=== PATIENT | female | born 1945 | race Two or more races ===

== ENCOUNTER 2018-09-19 07:21 | Day surgery (SDC) | payer MEDICARE ==
[2018-09-18 15:13] VITALS: BP 144/67
[2018-09-18 15:25] LABS: BASOPHILS % (AUTO) 1.7 % (0.0-5.0); EOSINOPHILS % (AUTO) 1.2 % (0.0-8.0); HEMATOCRIT 39.2 % (36-48); LYMPHOCYTES % (AUTO) 23.2 % (21.0-51.0); MEAN CORPUSCULAR HEMOGLOBIN 29.6 pg (27.0-33.0); MEAN CORPUSCULAR HGB CONC 33.7 g/dL (32.0-36.0); MEAN CORPUSCULAR VOLUME 87.8 fL (79-99); MONOCYTES % (AUTO) 7.9 % (3.0-13.0); PLATELET COUNT (AUTO) 324 K/uL (130-400); RED BLOOD CELL COUNT(AUTO) 4.47 MIL/uL (4.00-5.50); RED CELL DISTRIBUTION WIDTH 14.4 % (11.0-15.5)
[2018-09-18 15:25] LABS: BILIRUBIN,URINE NEGATIVE (NEGATIVE); COLOR,URINE YELLOW (YELLOW); GLUCOSE, URINE (UA) NEGATIVE (NEGATIVE); KETONES,URINE NEGATIVE (NEGATIVE); LEUKOCYTE ESTERASE ,URINE NEGATIVE (NEGATIVE); NITRATE,URINE NEGATIVE (NEGATIVE); OCCULT BLOOD,URINE NEGATIVE (NEGATIVE); PROTEIN,URINE NEGATIVE (NEGATIVE); UROBILINOGEN,URINE 0.2 mg/dL (0.2-1.0)
[2018-09-18 15:28] LABS: APPEARANCE,URINE CLEAR (CLEAR)
[2018-09-18 15:34] LABS: CREATININE 0.6 mg/dL (0.5-1.5); POTASSIUM 4.1 mmol/L (3.5-5.1)
[2018-09-19] VITALS (14 sets, daily range): BP systolic 120–165; BP diastolic 48–82
[~2018-09-19] VITALS: Ht 165.1 cm; Wt 101.2 kg
[~2018-09-19 07:21] MED LIST: FLUT16H NASAL; FLUT1DIS3 IH; LACTATED RINGERS 1000ML 1,000 ML IV SCH; SIMV40TA59 PO
[2018-09-19] MEDS ORDERED: DEXAMETHASONE SOD PHOSPHATE 10MG/ML 1ML VIAL ONE (08:40)
[2018-09-19] MEDS ORDERED: LIDOCAINE PF 2% 5ML ABBOJECT ONE ×2 (08:40→08:42)
[2018-09-19] MEDS ORDERED: ONDANSETRON HCL 4 MG/2 ML VIAL ONE (08:40)
[2018-09-19] MEDS ORDERED: FENTANYL CITRATE PF 50 MCG/1 ML 2ML VIAL ONE ×2 (08:41→09:00)
[2018-09-19] MEDS ORDERED: GLYCOPYRROLATE 1 MG/5 ML SYRINGE ONE (08:41)
[2018-09-19] MEDS ORDERED: NEOSTIGMINE 5MG/5ML SYR IV ONE (08:41)
[2018-09-19] MEDS ORDERED: ROCURONIUM 10MG/1ML SYR 10 MG/ML ML ONE (08:42)
[2018-09-19] MEDS ORDERED: MIDAZOLAM HCL 1 MG/ML 2ML VIAL ONE (08:42)
[2018-09-19] MEDS ORDERED: GABA-531 PO (09:07)
[2018-09-19] MEDS ORDERED: DULO30CA51 PO (09:07)
[2018-09-19] MEDS ORDERED: OMEP20CA10 PO (09:07)
[2018-09-19] MEDS ORDERED: ALBU8.5H8 IH (09:07)
[2018-09-19] MEDS ORDERED: LEVO125T11 PO (09:07)
[2018-09-19] MEDS ORDERED: CLON2TAB11 PO (09:07)
[2018-09-19] MEDS ORDERED: FLAX100030 PO (09:07)
[2018-09-19] MEDS ORDERED: SUPER B PO (09:07)
[2018-09-19] MEDS ORDERED: HYDR-3421 PO (09:07)
[2018-09-19] MEDS ORDERED: DHCO1CAP16 PO (09:07)
[2018-09-19] MEDS ORDERED: TURM500C9 PO (09:07)
[2018-09-19] MEDS ORDERED: MULT1TAB70 PO (09:07)
[2018-09-19] MEDS ORDERED: MECL12.585 PO (09:07)
[2018-09-19] MEDS ORDERED: HYDR-4060 PO (09:07)
[2018-09-19] MEDS ORDERED: LISI-613 PO (09:17)
== END 2018-09-19 11:45 | disposition home or self-care (01) ==
LOC: DAH 07:21
PROVIDERS: ATTEND Surgery
DX: D17.1 Benign lipomatous neoplasm of skin and subcutaneous tissue of trunk (principal); Z98.890 Other specified postprocedural states; Z90.710 Acquired absence of both cervix and uterus; I10 Essential (primary) hypertension; J45.909 Unspecified asthma, uncomplicated; Z88.8 Allergy status to other drugs, medicaments and biological substances; Z79.899 Other long term (current) drug therapy
CPT/HCPCS: 21933; 36415; 80048; 81003; 85025; 88304; 93005; A4450; A4600; A4930; J1100; J2001 ×2; J2250; J2405; J2710; J3010 ×2; J3490; J7120

== ENCOUNTER 2022-03-29 06:27 | Day surgery (SDC) | payer MEDICARE ==
[2022-03-25 10:30] VITALS: BP 170/79
[2022-03-25 10:46] LABS: BASOPHILS % (AUTO) 0.9 % (0.0-5.0); EOSINOPHILS % (AUTO) 1.8 % (0.0-8.0); HEMATOCRIT 39.6 % (36-48); MEAN CORPUSCULAR HEMOGLOBIN 29.8 pg (27.0-33.0); MEAN CORPUSCULAR HGB CONC 32.6 g/dL (32.0-36.0); MEAN CORPUSCULAR VOLUME 91.5 fL (79-99); MONOCYTES % (AUTO) 11.2 % (3.0-13.0); NEUTROPHILS % (AUTO) 53.8 % (40.0-77.0); PLATELET COUNT (AUTO) 280 K/uL (130-400); RED BLOOD CELL COUNT(AUTO) 4.33 MIL/uL (4.00-5.50); RED CELL DISTRIBUTION WIDTH 14.4 % (11.0-15.5); WHITE BLOOD COUNT (AUTO) 7.6 K/uL (4.8-10.8)
[2022-03-25 11:01] LABS: ALBUMIN 3.9 g/dL (3.5-5.0); BILIRUBIN,TOTAL 0.3 mg/dL (0.2-1.0); CREATININE 0.6 mg/dL (0.5-1.5); POTASSIUM 4.5 mmol/L (3.5-5.1); TOTAL PROTEIN, SERUM 7.1 g/dL (6.0-8.3)
[2022-03-25 11:03] LABS: INR 0.97 (0.85-1.15); PROTHROMBIN TIME 10.6 SEC (9.6-11.6)
[2022-03-25 11:05] LABS: PARTIAL THROMBOPLASTIN TIME 26.8 SEC (26.3-35.5)
[2022-03-25 12:05] LABS: APPEARANCE,URINE Clear (CLEAR); BILIRUBIN,URINE Negative (NEGATIVE); COLOR,URINE Yellow (YELLOW); GLUCOSE, URINE (UA) Negative (NEGATIVE); KETONES,URINE Negative (NEGATIVE); LEUKOCYTE ESTERASE ,URINE Small (NEGATIVE); NITRATE,URINE Negative (NEGATIVE); OCCULT BLOOD,URINE Negative (NEGATIVE); PH,URINE 5.5 (5.0-8.0); PROTEIN,URINE Negative (NEGATIVE); UROBILINOGEN,URINE 0.2 mg/dL (0.2-1.0)
[2022-03-25 12:15] LABS: BACTERIA,URINE Rare /HPF (None Seen); RBC,URINE 0-1 /HPF (0-1); SQUAMOUS EPITHELIAL CELL,UR Rare /HPF (0-2); WBC,URINE 0-1 /HPF (0-1)
[2022-03-29] VITALS (14 sets, daily range): BP systolic 102–156; BP diastolic 52–78
[~2022-03-29] VITALS: Ht 160 cm; Wt 93.3 kg
[~2022-03-29 06:27] MED LIST changes: +CLON2TAB11 PO; +DULO30CA52 PO; -FLUT16H NASAL; -FLUT1DIS3 IH; -LACTATED RINGERS 1000ML 1,000 ML IV SCH; +LEVO-172 PO; +LOSA50TA64 PO; +OMEP20CA12 PO; +SIMV-46 PO; -SIMV40TA59 PO
[2022-03-29] MEDS ORDERED: LACTATED RINGERS 1000ML 1,000 ML IV ONE (07:02)
[2022-03-29] MEDS ORDERED: 0.9%NACL 1000ML 1,000 ML IV SCH (08:00)
[2022-03-29] MEDS: CEFAZOLIN SODIUM 1 GM VIAL IVP ONE ×2 (09:53→11:30)
[2022-03-29] MEDS ORDERED: ROCURONIUM 10MG/1ML SYR 10 MG/ML ML ONE (11:23)
[2022-03-29] MEDS ORDERED: FENTANYL CITRATE PF 50 MCG/1 ML 2ML VIAL ONE (11:23)
[2022-03-29] MEDS ORDERED: NEOSTIGMINE 5MG/5ML SYR IV ONE (11:23)
[2022-03-29] MEDS ORDERED: PROPOFOL 10 MG/ML 20ML VIAL IV ONE (11:23)
[2022-03-29] MEDS ORDERED: LIDOCAINE PF 100MG/5ML (2%) SYRINGE 5ML ONE (11:24)
[2022-03-29] MEDS ORDERED: ONDANSETRON 4MG INJ ONE (11:59)
[2022-03-29] MEDS ORDERED: MEPERIDINE-PF 25 MG/ML SYG ONE (12:11)
[2022-03-29] MEDS ORDERED: LIDOCAINE HCL MPF 1% 5ML VIAL ONE (15:04)
== END 2022-03-29 14:30 | disposition home or self-care (01) ==
LOC: DAH 06:27
PROVIDERS: ATTEND Student in an Organized Health Care Education/Training Program
DX: D24.1 Benign neoplasm of right breast (principal); J45.909 Unspecified asthma, uncomplicated; I10 Essential (primary) hypertension; E78.5 Hyperlipidemia, unspecified; K21.9 Gastro-esophageal reflux disease without esophagitis; E78.00 Pure hypercholesterolemia, unspecified; Z80.9 Family history of malignant neoplasm, unspecified; Z79.01 Long term (current) use of anticoagulants; Z98.51 Tubal ligation status; Z90.710 Acquired absence of both cervix and uterus; Z98.890 Other specified postprocedural states; Z79.899 Other long term (current) drug therapy
CPT/HCPCS: 19285; 19301; 36415; 71045; 76098; 77065; 80053; 81001; 85025; 85610; 85730; 87635; 88305; 93005; A4215; A4221; A4222; A4223; A4600; A4649; A4663; A6260; C1819; C9803; G0168; J0690; J2001; J2175; J2405; J2704; J2710; J3010; J3490; J7120

== ENCOUNTER 2024-11-08 11:09 | Emergency (ER) | payer MEDICARE ==
[~2024-11-08] VITALS: Ht 165.1 cm; Wt 95.3 kg
--- NOTE | 2024-11-08 11:36 | ERN ---
ED Note History of Present Illness Stated Complaint: COUGH,CONGESTION X2 DAYS Chief Complaint: Cough Time Seen by MD: 11:26 Dictation: Patient is a 79-year-old female with a past medical history of asthma who presents to the ED for cough. Patient states the cough started last Tuesday and has worsened. She denies any phlegm, fevers, chills, nausea, vomiting, or diarrhea. She denies any chest pain, difficulty swallowing, sore throat or ear pain. Patient admits to having generalized body aches and feeling fatigued and short of breath when having coughing episodes. Patient uses nebulizer up to three times daily but has not found much relief. Allergies: Coded Allergies: aspirin (Unverified Adverse Reaction, Unknown, STOMACH MOTA, 07/12/14) NOT AN ALLERGY - SIDE EFFECT morphine (Unverified Adverse Reaction, Unknown, VIOLENTLY VOMITING AND STATES CANT MOVE EYEBALLS, 07/12/14) SIDE EFFECT Uncoded Allergies: ASPIRIN,MORPHINE (Allergy, Unknown, 07/12/14) Home Meds Active Scripts Azithromycin (Zithromax) 250 Mg Tablet, 1 TAB PO AD for 5 Days, #6 TAB 0 Refills 2 the first day followed by 1 for days 2-5 Prov:CAITLYN MORALES MD 11/08/24 Methylprednisolone (Methylprednisolone) 4 Mg Tab.ds.pk, 0 PO AD, #21 TAB 0 Refills take 6 Pills Day 1, 5 Pills Day 2, 4 Pills Day 3, 3 Pills Day 4, 2 Pills Day 5 and 1 pill Day 6 Prov:CAITLYN MORALES MD 11/08/24 Reported Medications Levothyroxine Sodium (Euthyrox) 100 Mcg Tablet, 100 MCG PO AM, TAB 03/26/22 Simvastatin (Simvastatin) 40 Mg Tablet, 40 MG PO HS, TAB 03/26/22 Losartan Potassium (Losartan Potassium) 50 Mg Tablet, 40 MG PO AM, TAB 03/26/22 Omeprazole (Omeprazole) 20 Mg Capsule.dr, 20 MG PO HS, CAP 09/19/18 Duloxetine HCl (Duloxetine HCl) 30 Mg Capsule.dr, 30 MG PO HS, CAP 09/19/18 Clonazepam (Clonazepam) 2 Mg Tablet, 2 MG PO HS, TAB 09/19/18 Review of System Dictation Constitutional-no chills, weight loss/gain, fever. generalized body aches and fatigue Eyes-no injury, pain, redness and discharge ENT-no injury, pain, swelling Cardiovascular no chest pain, palpitations, edema Respiratory positive for shortness of breath, cough, wheezing Abdomen/GI-no abdominal pain, diarrhea, constipation, vomiting, nausea Back no injury and pain Genitourinary no injury, bleeding and discharge Musculoskeletal/extremities no injury, deformity Skin no rash, discoloration Neuro-no headache, weakness, numbness, tingling, seizures, tremors Psych-no suicidal ideation, homicidal ideation, hallucinations, depression, anxiety, memory loss Initial Vital Sign VS Vital Signs Date Time Temp Pulse Resp B/P (MAP) Pulse Ox O2 Delivery O2 Flow Rate FiO2 11/08/24 11:26 97.9 77 20 125/71 95 Room Air 11/08/24 13:03 0 21 Physical Exam Dictation VITAL SIGNS: Reviewed. GENERAL APPEARANCE: Alert, oriented x3, no acute distress, obese. HEAD AND FACE: Non-traumatic. EYES: PERRL, pink conjunctivas, eyelid no trauma, anterior chamber clear. EARS: Pinnas intact and no signs of trauma or erythema. Ear canals clear and no discharge. TMs no erythema. NOSE: No discharge, no bleeding. OROPHARYNX: Mouth normal, teeth no caries, tongue pink. Pharynx clear, no erythema. Tonsils no exudates, no abscesses noted. Mucous membrane moist. NECK: Supple, non-tender, no thyromegaly, no masses, no JVD, no bruits. BREAST: Deferred. CHEST: No tenderness, no crepitus, no paradoxical movement, no retractions. LUNGS: Clear, well-ventilated, symmetric, no rales, no rhonchi, no stridor, good breath sounds bilaterally. Bilateral wheezing, worse on left. HEART: Regular rate, regular rhythm, no murmur, no gallops. VASCULAR: No peripheral edema. ABDOMEN: Soft, positive bowel sounds, nondistended, no guarding, nontender, no rebound, no masses no hepatomegaly, no splenomegaly, no Solomon's sign, no hernias. RECTAL: Swelling, lesion, possible pilonidal cyst GENITAL: Deferred. NEUROLOGICAL: Normal speech, gross motor function intact, gross sensory function intact. MUSCULOSKELETAL: Neck nontender, full range of motion, back nontender, full range of motion. EXTREMITIES: Nontender, full range of motion. SKIN: Color pink, dry, no turgor, no rash, no lacerations, no abrasions, no contusions. LYMPHATICS: Deferred. Results (Laboratory/Radiology) Laboratory/Radiology Laboratory Tests Test 11/08/24 11:36 Influenza Type A Antigen Negative For Type A Influenza Type B Antigen Negative For Type B SARS-CoV-2 Antigen (Rapid) PRESUMPTIVE NEGATIVE ED Course ED Course Orders Procedure Category Date Status Time Covid19 (Sars Antigen LAB 11/08/24 Complete Rapid) 11:18 Influenza Type A & B, LAB 11/08/24 Complete Rapid 11:18 Chest 1vw RAD 11/08/24 Resulted 11:18 12 Lead Ekg Tracing- EKG 11/08/24 Complete Technical 11:26 Methylprednisolone PHA 11/08/24 Complete Succ 125mg (Solu-Medr 11:30 Ipratropium/Albuterol PHA 11/08/24 Complete Neb (Duoneb) 11:30 Current Medications Medications (Trade) Dose Ordered Sig/Augustin Route PRN Reason Start Time Stop Time Status Last Admin Dose Admin Albuterol (DUOneb) 1 UDVIAL ONCE ONCE IH 11/08/24 11:30 11/08/24 11:31 DC 11/08/24 12:32 Methylprednisolone Sodium Succinate (Solu-medROL 125MG) 125 mg ONCE ONCE IM 11/08/24 11:30 11/08/24 11:31 DC 11/08/24 12:15 Vital Signs Date Time Temp Pulse Resp B/P (MAP) Pulse Ox O2 Delivery O2 Flow Rate FiO2 11/08/24 13:03 97.9 80 20 121/73 95 Room Air* 0 21 11/08/24 12:32 80 20 11/08/24 11:26 97.9 77 20 125/71 95 Room Air Medical Decision Making [facility] MDM INITIAL IMPRESSION Initial history and physical concerning for bronchitis, COPD exacerbation, viral illness Contributing medical problems: History of asthma I have reviewed the triage nursing notes and vital signs. Initial plan: Swabs, EKG, CXR DATA REVIEW I have reviewed additional NN, repeat VS, and monitoring where indicated. Heart rate, blood pressure, and O2 saturation are acceptable. ED COURSE Interventions: Steroids, nebulizer Reassessment: DISPOSITION Final diagnostic impression: COPD exacerbation, chronic bronchitis I discussed my findings, clinical impression and treatment recommendations with the patient. My final plan for disposition was made based upon -mild risk of complications and potential morbidity of the patient's condition. -Discussion with the patient regarding management options. Patient will be discharged on antibiotics and steroids and advised to follow up with PCP as needed DX & DISP Disposition: Discharge Departure Impression: Primary Impression: COPD exacerbation Additional Impression: Chronic bronchitis Condition: Stable Scripts Azithromycin (Zithromax) 250 Mg Tablet 1 TAB PO AD for 5 Days, #6 TAB 0 Refills 2 the first day followed by 1 for days 2-5 Prov: CAITLYN MORALES MD 11/08/24 Methylprednisolone (Methylprednisolone) 4 Mg Tab.ds.pk 0 PO AD, #21 TAB 0 Refills take 6 Pills Day 1, 5 Pills Day 2, 4 Pills Day 3, 3 Pills Day 4, 2 Pills Day 5 and 1 pill Day 6 Prov: CAITLYN MORALES MD 11/08/24 Additional Instructions: Continue nebulizer treatments at home every 4 hours for the next few days. Take antibiotics and steroids as prescribed. Take [id number] cold medications as needed. Drink 8-10 glasses of water each day to thin mucus and prevent dehydration. Proper head and shoulders with pillows when you lie down. A cool mist humidifier can also help with breathing. Get enough rest to help your body heal. Wash her hands often with soap and water or alcohol based hand blind cleaner. Cover your mouth when you cough. Avoid sharing cups or utensils. FOLLOW-UP WITH PRIMARY CARE PROVIDER IN 1 TO 2 DAYS. TAKE MEDICATIONS DIRECTED HERE IN THE EMERGENCY ROOM. OKAY TO CONTINUE HOME MEDICATIONS UNLESS OTHERWISE DISCUSSED DURING YOUR VISIT IN THE EMERGENCY ROOM TODAY. RETURN TO YOUR NEAREST EMERGENCY ROOM IF SYMPTOMS WORSEN OR IF THERE IS NO IMPROVEMENT. CALL 911 IF YOU NEED IMMEDIATE ASSISTANCE. TAKE TYLENOL [id number] NEEDED AND IF NO CONTRAINDICATIONS ARE PRESENT. INCREASE ORAL HYDRATION. A WOUND CULTURE OR URINE CULTURE WAS ORDERED HERE IN THE EMERGENCY ROOM DEPARTMENT PLEASE FOLLOW-UP WITH PRIMARY CARE PROVIDER AND ADVISE THEM TO GET REPEAT PORTS FROM OUR FACILITY. IF YOU HAD ANY ANTONI WRAP/SPLINTS THAT WERE APPLIED HERE, PLEASE DO NOT REMOVE THEM UNTIL YOU SEE YOUR PRIMARY CARE OR SPECIALTY. Referrals: BRANDON FROST (PCP) Time of Disposition: 12:56 I have reviewed I have reviewed the case I have examined patient ATTESTATION BY PHYSICIAN I PERFORMED THE SUBSTANTIVE PORTION OF THE VISIT. I HAVE REVIEWED AND PERSONALLY MADE AND APPROVED THE MANAGEMENT PLAN THAT IS DOCUMENTED IN THE NOTE BY MYSELF FOR THE A PP. I ACKNOWLEDGED FOR RESPONSIBILITY FOR THE PATIENT'S MANAGEMENT PLAN. CAITLYN MORALES MD Nov 08, 2024 11:36 IVY JACKSON DO Nov 08, 2024 18:12
[2024-11-08] MEDS ORDERED: METH4TAB15 PO (12:02)
[2024-11-08] MEDS ORDERED: AZIT250T PO (12:02)
[2024-11-08 12:13] LABS: COVID19 (SARS ANTIGEN RAPID) PRESUMPTIVE NEGATIVE (NEGATIVE)
[2024-11-08 12:14] LABS: INFLUENZA TYPE A Negative For Type A (NEGATIVE); INFLUENZA TYPE B Negative For Type B (NEGATIVE)
[2024-11-08] MEDS: Solu-medROL 125MG VIAL IM ONE (12:15)
[2024-11-08 12:32] VITALS: PULSE 80; RESP 20
[2024-11-08] MEDS: IpraTROPium/alBUTERol SULFATE 3 ML SOLUTION IH ONE (12:32)
--- NOTE | 2024-11-08 12:46 | EKG ---
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
--- NOTE | 2024-11-08 12:57 | HMCIMG ---
CHEST 1VW HISTORY: Cough COMPARISON: 03/25/2022 FINDINGS: A frontal projection of the chest was obtained. No acute pulmonary infiltrates is seen. The heart is normal in size. Prominent interstitial markings are seen. Degenerative changes are seen. No evidence of aortic calcification is seen. IMPRESSION: 1. No acute pulmonary infiltrate is seen.
[2024-11-08 13:03] VITALS: BP 121/73; PULSE 80; RESP 20; TEMP 97.9; O2SAT 95
== END 2024-11-08 13:11 | disposition home or self-care (01) ==
LOC: EDH 11:09
DX: J44.1 Chronic obstructive pulmonary disease with (acute) exacerbation (principal); Z20.822 Contact with and (suspected) exposure to COVID-19; Z88.5 Allergy status to narcotic agent; Z88.6 Allergy status to analgesic agent
CPT/HCPCS: 99285; 71045; 87426; 87804 ×2; 96372; 93005; 94640; J2919

== ENCOUNTER 2025-03-03 20:00 | Emergency (ER) | payer MEDICARE ==
[~2025-03-03] VITALS: Ht 162.6 cm; Wt 97.5 kg
[~2025-03-03 20:00] MED LIST changes: +AZIT250T PO; +METH4TAB15 PO
--- NOTE | 2025-03-03 20:42 | HMCIMG ---
Exam Type: US ABDOMINAL RUQ\E\LTD Clinical Information: ruq pain, n/v Comparison: None Findings: The liver shows normal echogenicity and is otherwise unremarkable. The liver measures less than 16 cm in length. Doppler evaluation shows patent portal and hepatic veins. The gallbladder shows no significant abnormalities. Specifically, no calculi are seen. The gallbladder wall thickness is 2 mm. No bile duct dilatation is noted. The common bile duct measures 4 mm. The right kidney measures 9.2 x 3 point cm. The right kidney is normal in size and echogenicity. No hydronephrosis or renal calculi are seen. There are no renal masses. The pancreas is unremarkable. IMPRESSION: Normal right upper quadrant abdominal ultrasound.
[2025-03-03] MEDS: ondanSETRON 4MG INJ IVP STA (20:55)
[2025-03-03] MEDS: FAMOTIDINE 20MG VIAL IV STA (20:55)
[2025-03-03] MEDS: 0.9%NACL 1000ML 1,000 ML IV STA (20:56)
[2025-03-03 20:57] LABS: BASOPHILS # (AUTO) 0.02 K/uL (0.00-0.20); BASOPHILS % (AUTO) 0.3 % (0.0-5.0); EOSINOPHILS # (AUTO) 0.07 K/uL (0.00-0.70); EOSINOPHILS % (AUTO) 0.9 % (0.0-8.0); IMMATURE GRANULOCYTE ABSOLUTE 0.02 K/uL (0-1); LYMPHOCYTES # (AUTO) 0.4 K/uL (1.0-4.8); LYMPHOCYTES % (AUTO) 5.3 % (21.0-51.0); MEAN CORPUSCULAR HEMOGLOBIN 28.3 pg (27.0-33.0); MEAN CORPUSCULAR HGB CONC 32.2 g/dL (32.0-36.0); MEAN CORPUSCULAR VOLUME 87.7 fL (79-99); MONOCYTES # (AUTO) 0.8 K/uL (0.1-1.0); MONOCYTES % (AUTO) 9.6 % (3.0-13.0); NEUTROPHILS # (AUTO) 6.7 K/uL (1.8-7.7); NEUTROPHILS % (AUTO) 83.6 % (40.0-77.0); PLATELET COUNT (AUTO) 281 K/uL (130-400); RED BLOOD CELL COUNT(AUTO) 5.13 MIL/uL (4.00-5.50); RED CELL DISTRIBUTION WIDTH 14.4 % (11.0-15.5)
[2025-03-03 21:09] LABS: CREATININE 0.7 mg/dL (0.5-1.0); POTASSIUM 4.1 mmol/L (3.5-5.1)
[2025-03-03 21:14] LABS: ALBUMIN 3.9 g/dL (3.5-5.0); BILIRUBIN,DIRECT 0.2 mg/dL (0.0-0.3); BILIRUBIN,TOTAL 0.5 mg/dL (0.2-1.0); TOTAL PROTEIN, SERUM 7.1 g/dL (6.0-8.3)
[2025-03-03] MEDS ORDERED: IOHEXOL-350 75 ML VIAL IV ONE (21:17)
--- NOTE | 2025-03-03 21:21 | ERN ---
ED Note History of Present Illness Stated Complaint: N/V/D, ABD PAIN Chief Complaint: Nausea,Vomiting,Diarrhea Time Seen by MD: 20:07 Time Seen by Midlevel: 20:11 Dictation: 79-year-old female coming in with complaints of epigastric pain and right upper quadrant pain since last night with multiple episodes of vomiting and diarrhea. No blood in stool or emesis. States last thing she ate was corn beef last night before symptoms started. Allergies: Coded Allergies: aspirin (Unverified Adverse Reaction, Unknown, STOMACH MOTA, 07/12/14) NOT AN ALLERGY - SIDE EFFECT morphine (Unverified Adverse Reaction, Unknown, VIOLENTLY VOMITING AND STATES CANT MOVE EYEBALLS, 07/12/14) SIDE EFFECT Uncoded Allergies: ASPIRIN,MORPHINE (Allergy, Unknown, 07/12/14) Home Meds Active Scripts Azithromycin (Zithromax) 250 Mg Tablet, 1 TAB PO AD for 5 Days, #6 TAB 0 Refills 2 the first day followed by 1 for days 2-5 Prov:CAITLYN MORALES MD 11/08/24 Methylprednisolone (Methylprednisolone) 4 Mg Tab.ds.pk, 0 PO AD, #21 TAB 0 Refills take 6 Pills Day 1, 5 Pills Day 2, 4 Pills Day 3, 3 Pills Day 4, 2 Pills Day 5 and 1 pill Day 6 Prov:CAITLYN MORALES MD 11/08/24 Reported Medications Levothyroxine Sodium (Euthyrox) 100 Mcg Tablet, 100 MCG PO AM, TAB 03/26/22 Simvastatin (Simvastatin) 40 Mg Tablet, 40 MG PO HS, TAB 03/26/22 Losartan Potassium (Losartan Potassium) 50 Mg Tablet, 40 MG PO AM, TAB 03/26/22 Omeprazole (Omeprazole) 20 Mg Capsule.dr, 20 MG PO HS, CAP 09/19/18 Duloxetine HCl (Duloxetine HCl) 30 Mg Capsule.dr, 30 MG PO HS, CAP 09/19/18 Clonazepam (Clonazepam) 2 Mg Tablet, 2 MG PO HS, TAB 09/19/18 Past Medical History Past Medical History: Asthma, High Cholesterol, Hypertension Surgical History: Hysterectomy, Tonsillectomy, Other Surgical History Other: 7 BACK, BACK STIMULATOR, RT ANKLE, BILATERAL KNEE Review of System Dictation Constitutional: Negative for fever,chills, and weight loss Eyes: Negative for injury, pain,redness, and discharge ENT: Negative for injury,pain or swelling Cardiovascular: Negative for chest pain, palpitations, and edema Respiratory: Negative for shortness of breath, cough, and wheezing, Abdomen/GI: Positive for right upper quadrant pain, nausea, vomiting, diarrhea, Back: Negative for injury and pain : Negative for injury, bleeding and discharge MS/Extremity: Negative for injury and deformity Skin: Negative for rash, and discoloration Neuro: Negative for headache, weakness, numbness, tingling, and seizure Psych: Negative for suicide ideation, homicidal ideation, and hallucinations Review of Systems: was completed Initial Vital Sign VS Vital Signs Date Time Temp Pulse Resp B/P (MAP) Pulse Ox O2 Delivery O2 Flow Rate FiO2 03/03/25 20:01 99.3 102 20 140/86 94 Room Air 03/03/25 21:17 2 28 Physical Exam Dictation General: awake, alert, NAD Head/Face: Normocephalic, atraumatic Eyes: PERRL, EOMI, vision at baseline ENT: oral cavity clear, TMs clear, no signs of infection Neck: Trachea midline, supple, no nuchal rigidity Cardiovascular: RRR, normal S1/S2, No MRGs, no JVD Respiratory: CTAB, no respiratory distress, No rales or wheezes Abdomen: Soft, non-tender, non-distended, normal bowel sounds, no guarding or rebound. Skin: Warm, dry, normal turgor, no rash MS/Extremity: Pulses equal, no cyanosis, neurovascular intact, FROM Neuro: COAx4, GCS 15, strength 5/5, CN 2-12 intact, normal cerebellar exam, normal gait, Psych: Normal behavior, mood, and affect normal Results (Laboratory/Radiology) Laboratory/Radiology Laboratory Tests Test 03/03/25 20:47 White Blood Count 8.0 K/uL (4.8-10.8) Red Blood Count 5.13 MIL/uL (4.00-5.50) Hemoglobin 14.5 g/dL (12.0-16.0) Hematocrit 45.0 % (36-48) Mean Corpuscular Volume 87.7 fL (79-99) Mean Corpuscular Hemoglobin 28.3 pg (27.0-33.0) Mean Corpuscular Hemoglobin Concent 32.2 g/dL (32.0-36.0) Red Cell Distribution Width 14.4 % (11.0-15.5) Platelet Count 281 K/uL (130-400) Mean Platelet Volume 9.6 fL (7.5-10.5) Immature Granulocyte % (Auto) 0.3 % (0-1) Neutrophils (%) (Auto) 83.6 % (40.0-77.0) H Lymphocytes (%) (Auto) 5.3 % (21.0-51.0) L Monocytes (%) (Auto) 9.6 % (3.0-13.0) Eosinophils (%) (Auto) 0.9 % (0.0-8.0) Basophils (%) (Auto) 0.3 % (0.0-5.0) Neutrophils # (Auto) 6.7 K/uL (1.8-7.7) Lymphocytes # (Auto) 0.4 K/uL (1.0-4.8) L Monocytes # (Auto) 0.8 K/uL (0.1-1.0) Eosinophils # (Auto) 0.07 K/uL (0.00-0.70) Basophils # (Auto) 0.02 K/uL (0.00-0.20) Absolute Immature Granulocyte (auto 0.02 K/uL (0-1) Nucleated Red Blood Cells 0.0 % (0.0-0.19) White Cell Morphology Comment See comments Sodium Level 143 mmol/L (136-145) Potassium Level 4.1 mmol/L (3.5-5.1) Chloride Level 106 mmol/L (101-111) Carbon Dioxide Level 28 mmol/L (21-32) Blood Urea Nitrogen 18 mg/dL (7-18) Creatinine 0.7 mg/dL (0.5-1.0) Glomerular Filtration Rate Calc 89 mL/min (>90) Random Glucose 107 mg/dL (70-105) H Total Calcium 9.0 mg/dL (8.5-10.1) Total Bilirubin 0.5 mg/dL (0.2-1.0) Direct Bilirubin 0.2 mg/dL (0.0-0.3) Aspartate Amino Transf (AST/SGOT) 32 U/L (10-37) Alanine Aminotransferase (ALT/SGPT) 32 U/L (12-78) Alkaline Phosphatase 80 U/L (50-136) Total Protein 7.1 g/dL (6.0-8.3) Albumin 3.9 g/dL (3.5-5.0) Lipase 22 U/L (16-77) Labs Reviewed?: Yes EKG Comment: EKGs done at 8:21 p.m., sinus rhythm at a rate of 90, inferior infarct, old. No STEMI interpreted by ER MD Ultrasound Comment: [facility] [address] [place], [place] [id number] IMAGING REPORT Signed PATIENT: NEPTALI STRANGE MR#: [id number] : 1945 SEX: F AGE: 79 LOCATION: [facility] ORDER 14 STATUS: REG ER REPORT#: [id number] SERVICE 13 REASON: ruq pain, n/v ORDERING PHYSICIAN: CLAIRE MASON NP PROCEDURE: ABDRUQLTD - US ABDOMINAL RUQ\LTD Exam Type: US ABDOMINAL RUQ\E\LTD Clinical Information: ruq pain, n/v Comparison: None Findings: The liver shows normal echogenicity and is otherwise unremarkable. The liver measures less than 16 cm in length. Doppler evaluation shows patent portal and hepatic veins. The gallbladder shows no significant abnormalities. Specifically, no calculi are seen. The gallbladder wall thickness is 2 mm. No bile duct dilatation is noted. The common bile duct measures 4 mm. The right kidney measures 9.2 x 3 point cm. The right kidney is normal in size and echogenicity. No hydronephrosis or renal calculi are seen. There are no renal masses. The pancreas is unremarkable. IMPRESSION: Normal right upper quadrant abdominal ultrasound. DICTATED BY: JOON LIGHT MD DATE: 03/03/252038 ELECTRONICALLY SIGNED BY: JOON LIGHT MD DATE: 03/03/252041 CT Scan Comment: [facility] [address] [place] [address] IMAGING REPORT Signed PATIENT: NEPTALI STRANGE MR#: [id number] : 1945 SEX: F AGE: 79 LOCATION: [facility] ORDER 08 STATUS: REG ER REPORT#: [id number] SERVICE 07 REASON: abdominal pain, n/v/d ORDERING PHYSICIAN: CLAIRE MASON NP PROCEDURE: ABD PEL W - CT ABDOMEN/PELVIS W/CONTRAST Exam Type: CT ABDOMEN/PELVIS W/CONTRAST Clinical Information: abdominal pain, n/v/d Comparison: None Contrast: 100 cc's Isovue 370 IV, no complications or adverse reactions CT Dose Index (CTDI): 31.60 mGy Dose Length Product (DLP): 1740.80 total mGy-cm Findings: No evidence of nephro or ureterolithiasis is found. No hydronephrosis or ureteral dilatation is seen. The lung bases are clear. The stomach is unremarkable. It shows no wall thickening. No gross ulceration is seen. It is not overly distended. There are no surrounding inflammatory changes. No wall lesions are identified to suggest cancer. The spleen is unremarkable. It is not enlarged. The pancreas shows normal anatomy. It is not fatty replaced. It shows no lesions. The pancreatic duct is not dilated. The gallbladder is unremarkable. It shows no cholelithiasis. The gallbladder wall is normal in thickness. There is no pericholecystic fluid. The is no acute or chronic inflammation noted. The adrenal glands are unremarkable. There is no enlargement. No lesions are noted. The liver is unremarkable. It shows no focal masses. The appendix is unremarkable. It shows no evidence of inflammation. No appendicolith is seen. The small bowel is unremarkable. There is no evidence of dilatation to suggest obstruction. No evidence of adynamic ileus is seen. There is no small bowel wall thickening to suggest enteritis. There is diverticulosis. There is no evidence of acute inflammation to suggest diverticulitis. The colon is otherwise unremarkable. The urinary bladder is unremarkable. There is no wall thickening to suggest tumor or inflammation. There are no intraluminal calculi. There are no diverticula. There is no evidence of chronic bladder outlet obstruction. There is no evidence of urinary bladder distention to suggest urinary retention. The other pelvic structures are unremarkable. Postoperative changes of the lumbar spine. IMPRESSION: NEGATIVE CT SCAN OF THE ABDOMEN AND PELVIS WITH ORAL AND IV CONTRAST. This study was performed using dose reduction techniques to include automated exposure control and/or adjustment of the mA and/or kV according to patient size. DICTATED BY: JOON LIGHT MD DATE: 03/03/252135 ELECTRONICALLY SIGNED BY: JOON LIGHT MD DATE: 03/03/252140 ED Course ED Course Orders Procedure Category Date Status Time Cbc With Differential LAB 03/03/25 Complete 20:07 Basic Metabolic Panel LAB 03/03/25 Complete 20:07 Hepatic Function Panel LAB 03/03/25 Complete 20:07 Lipase LAB 03/03/25 Complete 20:07 Urinalysis Profile LAB 03/03/25 Logged 20:07 0.9%Nacl 1000ml (Ns PHA 03/03/25 Complete 1000ml) 20:07 Ondansetron 4mg Inj PHA 03/03/25 Complete (Zofran 4mg Inj) 20:07 Famotidine 20mg Vial PHA 03/03/25 Complete (Pepcid 20mg Vial) 20:07 12 Lead Ekg Tracing- EKG 03/03/25 Logged Technical 20:07 Us Abdominal Ruq\Ltd US 03/03/25 Resulted 20:14 Ct Abdomen/Pelvis CT 03/03/25 Resulted W/Contrast 21:08 Iohexol (Omnipaque) PHA 03/03/25 Complete 21:17 Current Medications Medications (Trade) Dose Ordered Sig/Augustin Route PRN Reason Start Time Stop Time Status Last Admin Dose Admin Famotidine (Pepcid 20mg Vial) 20 mg ONCE STAT IV 03/03/25 20:07 03/03/25 20:10 DC 03/03/25 20:55 Iohexol (Omnipaque) 75 ml STK-MED ONCE IV 03/03/25 21:17 03/03/25 21:17 DC Ondansetron HCl (zoFRAN 4MG INJ) 4 mg ONCE STAT IVP 03/03/25 20:07 03/03/25 20:10 DC 03/03/25 20:55 Sodium Chloride 1,000 ml @ 1,000 mls/hr Q1H STAT IV 03/03/25 20:07 03/03/25 21:06 DC 03/03/25 20:56 Vital Signs Date Time Temp Pulse Resp B/P (MAP) Pulse Ox O2 Delivery O2 Flow Rate FiO2 03/03/25 21:17 98.4 88 16 132/75 94 Nasal Cannula* 2 28 03/03/25 20:01 99.3 102 20 140/86 94 Room Air Medical Decision Making MDM MDM: 79-year-old female coming in with complaints of epigastric pain and right upper quadrant pain since last night with multiple episodes of vomiting and diarrhea. No blood in stool or emesis. States last thing she ate was corn beef last night before symptoms started.CBC shows no leukocytosis, no anemia, no thro mbocytopenia. Chemistry unremarkable. T bili lipase within normal range. No transaminitis. CT of the abdomen and pelvis ultrasound of the right upper quadrant are all within normal limits. Patient has not had any episodes of vomiting or diarrhea here in the ER. Patient states feels better after fluids and medication. Discussed findings with the patient. Educated patient more than likely she has a viral gastroenteritis from something that she ate, discussed she is to take antiemetic medication at home and stay hydrated. Educated on signs and symptoms of when to return back to the ER. Patient verbalized understanding, answered all questions. Differential diagnosis: Gastroenteritis Rationale: Tests considered and ordered secondary to shared decision making include: Previous outside records reviewed: Old ER visits. Risk of complication and/or morbidity or mortality of patient management: None Medications-Per medication reconciliation Need for hospitalization: Patient does not meet criteria for hospitalization. Need for emergency major/minor surgery: No There are no social concerns with this patient. Prescription drug management Prescriptions will include symptomatic care Patient's prior external medical records from other ER visits were reviewed by germaine patricio as indicated. Prior testing and results from previous visits were reviewed. Prior tests were taken into account with medical decision making and resource utilization, independent historian/historians were used to obtain complete medical history. I independently interpreted the test that were performed, results were reviewed by me and considered findings on radiology if ordered. Medical management and examination interpretation discussions were had by me with other qualified healthcare professionals as indicated for the patient's care. DX & DISP Disposition: Discharge Departure Impression: Primary Impression: Gastroenteritis Condition: Stable Scripts Famotidine (Pepcid) 20 Mg Tablet 1 TAB PO BID for 30 Days, #60 TAB 0 Refills Prov: CLAIRE MASON CASHIER SUPERVISOR 03/03/25 Ondansetron (Ondansetron Odt) 4 Mg Tab.rapdis 4 MG PO TIDP PRN for nausea for 3 Days, #9 TAB 0 Refills Prov: MASONCLAIRE CASHIER SUPERVISOR 03/03/25 Additional Instructions: Police dehydrated. Take medications as prescribed. If you are unable to keep any fluids or food down despite your nausea medication please return back to the ER. Otherwise follow up with your PCP in 1-2 days. Referrals: BRANDON FROST (PCP) Time of Disposition: 21:56 I have reviewed the case, and I agree with, Diagnosis and Plan CLAIRE MASON NP Mar 03, 2025 21:21
--- NOTE | 2025-03-03 21:41 | HMCIMG ---
Exam Type: CT ABDOMEN/PELVIS W/CONTRAST Clinical Information: abdominal pain, n/v/d Comparison: None Contrast: 100 cc's Isovue 370 IV, no complications or adverse reactions CT Dose Index (CTDI): 31.60 mGy Dose Length Product (DLP): 1740.80 total mGy-cm Findings: No evidence of nephro or ureterolithiasis is found. No hydronephrosis or ureteral dilatation is seen. The lung bases are clear. The stomach is unremarkable. It shows no wall thickening. No gross ulceration is seen. It is not overly distended. There are no surrounding inflammatory changes. No wall lesions are identified to suggest cancer. The spleen is unremarkable. It is not enlarged. The pancreas shows normal anatomy. It is not fatty replaced. It shows no lesions. The pancreatic duct is not dilated. The gallbladder is unremarkable. It shows no cholelithiasis. The gallbladder wall is normal in thickness. There is no pericholecystic fluid. The is no acute or chronic inflammation noted. The adrenal glands are unremarkable. There is no enlargement. No lesions are noted. The liver is unremarkable. It shows no focal masses. The appendix is unremarkable. It shows no evidence of inflammation. No appendicolith is seen. The small bowel is unremarkable. There is no evidence of dilatation to suggest obstruction. No evidence of adynamic ileus is seen. There is no small bowel wall thickening to suggest enteritis. There is diverticulosis. There is no evidence of acute inflammation to suggest diverticulitis. The colon is otherwise unremarkable. The urinary bladder is unremarkable. There is no wall thickening to suggest tumor or inflammation. There are no intraluminal calculi. There are no diverticula. There is no evidence of chronic bladder outlet obstruction. There is no evidence of urinary bladder distention to suggest urinary retention. The other pelvic structures are unremarkable. Postoperative changes of the lumbar spine. IMPRESSION: NEGATIVE CT SCAN OF THE ABDOMEN AND PELVIS WITH ORAL AND IV CONTRAST. This study was performed using dose reduction techniques to include automated exposure control and/or adjustment of the mA and/or kV according to patient size.
[2025-03-03] MEDS ORDERED: ONDA-243 PO (21:55)
[2025-03-03] MEDS ORDERED: FAMO-136 PO (21:55)
[2025-03-03 22:21] VITALS: BP 132/75; PULSE 83; RESP 17; TEMP 98.4; O2SAT 94
--- NOTE | 2025-03-04 06:24 | EKG ---
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
== END 2025-03-03 22:34 | disposition home or self-care (01) ==
LOC: EDH 20:00
DX: K52.9 Noninfective gastroenteritis and colitis, unspecified (principal); E78.00 Pure hypercholesterolemia, unspecified; I10 Essential (primary) hypertension; J45.909 Unspecified asthma, uncomplicated; Z88.5 Allergy status to narcotic agent; Z88.6 Allergy status to analgesic agent; Z90.710 Acquired absence of both cervix and uterus
CPT/HCPCS: 99285; 74177; 96374; 76705; 96375; 80076; 80048; 83690; 85025; 36415; 93005; J3490; J7030; J2405; Q9967